=== PATIENT | male | born 1965 | race Caucasian/White ===

== ENCOUNTER 2022-04-08 01:15 | Emergency (ER) | payer MEDICARE ==
[~2022-04-08] VITALS: Ht 185.4 cm; Wt 96.3 kg
[2022-04-08] MEDS ORDERED: CLONIDINE0.1 MG PO (01:37)
[2022-04-08] MEDS ORDERED: LEVOTHYROXIN100 MCG PO (01:38)
[2022-04-08] MEDS ORDERED: PANTOPRAZOLE SO40 M3 (01:38)
[2022-04-08] MEDS ORDERED: ABILIFY MYCITE15 M2 (01:39)
[2022-04-08] MEDS ORDERED: MIRTAZAPINE15 MG PO (01:39)
[2022-04-08] MEDS ORDERED: LORAZEPAM0.5 MG PO (01:39)
[2022-04-08] MEDS ORDERED: ROSUVASTATIN CA10 MG (01:40)
[2022-04-08 02:00] LABS: HEMOGLOBIN 14.2 g/dl (14.0-18.0); IMMATURE GRANULOCYTES 0.5 % (0.0-5.0); MEAN CELL VOLUME 88.5 fL CALC (80.0-100.0); MEAN CORPUSCULAR HGB 29.2 pG CALC (26.0-32.0); NEUT# 4.16 thou/uL (1.82-7.42); RED BLOOD COUNT 4.86 mill/uL (4.70-6.10); RED CELL DISTRI WIDTH 13.4 % (11.5-15.5)
[2022-04-08 02:01] LABS: ALBUMIN 4.4 g/dL (3.2-5.0); ALKALINE PHOSPHATASE 80 u/l (38-126); AMYLASE 61 u/l (30-110); ANION GAP 11 (6-22 (CALC)); BILIRUBIN, TOTAL 0.4 mg/dL (0.0-1.4); BUN 12 mg/dL (9-20); BUN/CREATININE RATIO 11 (12-20 (CALC)); CARBON DIOXIDE 28 mmol/l (22-30); CHLORIDE 108 mmol/l (95-108); CREATININE 1.1 mg/dL (0.7-1.3); ETHYL ALCOHOL 0 mg/dl (0-30); GFR FOR AFR.AMER. > 60 ML/MIN (>=60 (CALC)); GFR OTHER RACES > 60 ML/MIN (>=60 (CALC)); LIPASE 139 u/l (23-300); POTASSIUM 4.1 mmol/l (3.5-5.1); SGOT/AST 29 u/l (17-59); SODIUM 142 mmol/l (137-146); TOTAL PROTEIN 7.7 g/dL (6.3-8.2)
[2022-04-08 02:02] LABS: PROTHROMBIN TIME 9.8 SECONDS (9.0-12.5)
[2022-04-08 02:12] LABS: MYOGLOBIN 67 ng/mL (0 - 121)
[2022-04-08] MEDS ORDERED: EQ OMEPRAZOLE20 MG PO (04:30)
[2022-04-08] MEDS ORDERED: CLARITIN10 M2 PO (04:30)
[2022-04-08] MEDS ORDERED: AMOXICILLIN500 MG PO (04:30)
[2022-04-08 04:38] VITALS: BP 136/74
== END 2022-04-08 04:40 | disposition home or self-care (01) ==
LOC: ED 01:15
PROVIDERS: Emergency Medicine
DX: K92.0 Hematemesis (principal); J02.9 Acute pharyngitis, unspecified; F95.2 Tourette's disorder; I10 Essential (primary) hypertension; E03.9 Hypothyroidism, unspecified; K21.9 Gastro-esophageal reflux disease without esophagitis; Z20.822 Contact with and (suspected) exposure to COVID-19
CPT/HCPCS: Q9967; S0164

== ENCOUNTER 2023-08-18 20:11 | Emergency (ER) | payer MEDICARE, MEDICAID ==
[2023-08-18] VITALS (10 sets, daily range): BP systolic 112–142; BP diastolic 74–93
[~2023-08-18] VITALS: Ht 185.4 cm; Wt 85.0 kg
[~2023-08-18 20:11] MED LIST: ABILIFY MYCITE15 M2; AMOXICILLIN500 MG PO; CLARITIN10 M2 PO; CLONIDINE0.1 MG PO; EQ OMEPRAZOLE20 MG PO; LEVOTHYROXIN100 MCG PO; LORAZEPAM0.5 MG PO; MIRTAZAPINE15 MG PO; PANTOPRAZOLE SO40 M3; ROSUVASTATIN CA10 MG
[2023-08-18] MEDS ORDERED: CRESTOR10 MG PO (20:51)
[2023-08-18] MEDS ORDERED: TRILEPTAL300 M1 PO (20:53)
[2023-08-18] MEDS ORDERED: SEROQUEL100 MG PO (20:57)
[2023-08-18] MEDS ORDERED: HUMIRA40 MG/0.8 SC (20:59)
[2023-08-18] MEDS ORDERED: PROTONIX40 M2 PO (21:00)
[2023-08-18 21:38] LABS: BASO% 0.4 % (0-3); EOS% 5.2 % (0-8); HEMATOCRIT 46.9 % (39.0-50.0); HEMOGLOBIN 15.2 g/dl (14.0-18.0); IMMATURE GRANULOCYTES 0.3 % (0.0-5.0); LYMPH% 26.9 % (15-41); MEAN CELL VOLUME 90.5 fL CALC (80.0-100.0); MEAN CORPUSCULAR HGB 29.3 pG CALC (26.0-32.0); MEAN CORPUSCULAR HGB CONC 32.4 g/dL CAL (32.0-36.0); MONO% 6.4 % (2-13); NEUT# 4.82 thou/uL (1.82-7.42); NEUT% 60.8 % (42-76); RED BLOOD COUNT 5.18 mill/uL (4.70-6.10); RED CELL DISTRI WIDTH 14.1 % (11.5-15.5)
[2023-08-18 21:48] LABS: ALBUMIN 4.6 g/dL (3.2-5.0); ALKALINE PHOSPHATASE 88 u/l (38-126); ANION GAP 12 (6-22 (CALC)); BILIRUBIN, TOTAL 0.5 mg/dL (0.2-1.3); BUN 10 mg/dL (9-20); BUN/CREATININE RATIO 11 (12-20 (CALC)); CARBON DIOXIDE 25 mmol/l (22-30); CHLORIDE 107 mmol/l (95-108); GFR FOR AFR.AMER. > 60 ML/MIN (>=60 (CALC)); GFR OTHER RACES > 60 ML/MIN (>=60 (CALC)); POTASSIUM 4.5 mmol/l (3.5-5.1); SGOT/AST 34 u/l (17-59); SODIUM 140 mmol/l (137-146); TOTAL PROTEIN 7.4 g/dL (6.3-8.2)
[2023-08-18 23:19] LABS: URINE BILIRUBIN - DIPSTICK Negative (NEGATIVE); URINE BLOOD DIPSTICK Negative (NEGATIVE); URINE GLUCOSE - DIPSTICK Negative (NEGATIVE); URINE KETONE Negative (NEGATIVE); URINE LEUK ESTERASE Negative (NEGATIVE); URINE NITRITE - DIPSTICK Negative (Negative); URINE PH 6.5 (4.5-8.0); URINE PROTEIN - DIPSTICK Negative (NEG-TRACE); URINE UROBILINOGEN - DIPSTICK 0.2 E.U./dL (0.2)
[2023-08-18 23:20] LABS: URINE COLOR Yellow
[2023-08-19 00:05] VITALS: BP 112/79
== END 2023-08-19 00:20 | disposition home or self-care (01) ==
LOC: ED 20:11
PROVIDERS: Family Medicine
DX: F43.22 Adjustment disorder with anxiety (principal); I10 Essential (primary) hypertension; E03.9 Hypothyroidism, unspecified; K21.9 Gastro-esophageal reflux disease without esophagitis; F95.2 Tourette's disorder

== ENCOUNTER 2024-02-07 02:15 | Emergency (ER) | payer MEDICARE, MEDICAID ==
[~2024-02-07] VITALS: Ht 185.4 cm; Wt 101.0 kg
[~2024-02-07 02:15] MED LIST changes: +CRESTOR10 MG PO; +HUMIRA40 MG/0.8 SC; +PROTONIX40 M2 PO; +SEROQUEL100 MG PO; +TRILEPTAL300 M1 PO
[2024-02-07 02:25] VITALS: BP 122/90
[2024-02-07 02:30] VITALS: BP 112/71
[2024-02-07] MEDS ORDERED: IBUPROFEN 600 MG/TAB PO ONE (02:35)
[2024-02-07] MEDS ORDERED: ACETAMINOPHEN 500 MG TAB PO ONE (02:35)
[2024-02-07 02:54] LABS: BASO% 0.7 % (0-3); EOS% 5.4 % (0-8); HEMATOCRIT 44.1 % (39.0-50.0); HEMOGLOBIN 14.2 g/dl (14.0-18.0); IMMATURE GRANULOCYTES 0.2 % (0.0-5.0); LYMPH% 25.6 % (15-41); MEAN CELL VOLUME 90.7 fL CALC (80.0-100.0); MEAN CORPUSCULAR HGB 29.2 pG CALC (26.0-32.0); MEAN CORPUSCULAR HGB CONC 32.2 g/dL CAL (32.0-36.0); MONO% 12.4 % (2-13); NEUT# 2.46 thou/uL (1.82-7.42); NEUT% 55.7 % (42-76); RED BLOOD COUNT 4.86 mill/uL (4.70-6.10); RED CELL DISTRI WIDTH 13.8 % (11.5-15.5)
[2024-02-07 03:33] VITALS: BP 112/71
== END 2024-02-07 03:43 | disposition home or self-care (01) ==
LOC: ED 02:15
PROVIDERS: Family Medicine
DX: U07.1 COVID-19 (principal); R50.9 Fever, unspecified; J02.9 Acute pharyngitis, unspecified; R05.9 Cough, unspecified; R51.9 Headache, unspecified; M79.10 Myalgia, unspecified site; I10 Essential (primary) hypertension; E03.9 Hypothyroidism, unspecified; K21.9 Gastro-esophageal reflux disease without esophagitis

== ENCOUNTER 2024-02-28 10:47 | Emergency (ER) | payer MEDICARE ==
[~2024-02-28] VITALS: Ht 185.4 cm; Wt 100.0 kg
[2024-02-28 11:12] VITALS: BP 114/80
[2024-02-28 11:30] VITALS: BP 97/66
[2024-02-28 12:00] VITALS: BP 102/67
[2024-02-28] MEDS ORDERED: FLOXIN OTIC0.3 % AD (12:14)
[2024-02-28 12:30] VITALS: BP 117/71
== END 2024-02-28 12:45 | disposition home or self-care (01) ==
LOC: ED 10:47
DX: H60.91 Unspecified otitis externa, right ear (principal); I10 Essential (primary) hypertension; E03.9 Hypothyroidism, unspecified; K21.9 Gastro-esophageal reflux disease without esophagitis; F95.2 Tourette's disorder

== ENCOUNTER 2024-07-28 23:00 | Emergency (ER) | payer MEDICARE, MEDICAID ==
[~2024-07-28] VITALS: Ht 185.4 cm; Wt 104.8 kg
[~2024-07-28 23:00] MED LIST changes: +FLEXERIL5 M1 PO; +FLOXIN OTIC0.3 % AD; +NAPROXEN500 MG PO
[2024-07-28] MEDS ORDERED: DiphenhydrAMINE HCL 25 MG CPLT PO ONE (23:15)
[2024-07-28] MEDS ORDERED: OXYMETAZOLINE HCL 15 ML/BTL ONE (23:20)
[2024-07-28 23:23] VITALS: BP 146/84
[2024-07-28 23:30] VITALS: BP 137/94
[2024-07-28 23:45] VITALS: BP 123/85
[2024-07-29] VITALS: BP 121/86
== END 2024-07-28 23:59 | disposition home or self-care (01) ==
LOC: ED 23:00
DX: J06.9 Acute upper respiratory infection, unspecified (principal); I10 Essential (primary) hypertension; E03.9 Hypothyroidism, unspecified; K21.9 Gastro-esophageal reflux disease without esophagitis; F95.2 Tourette's disorder; Z20.822 Contact with and (suspected) exposure to COVID-19

== ENCOUNTER 2024-09-21 06:10 | Emergency (ER) | payer MEDICARE, MEDICAID | END 2024-09-21 06:30 | disposition left against medical advice (07) | LOC: ED 06:10 → LWOBS 06:30 → ED 06:30 | DX: Z53.21 Procedure and treatment not carried out due to patient leaving prior to being seen by health care provider (principal) ==

== ENCOUNTER 2024-10-08 10:13 | Emergency (ER) | payer MEDICARE, MEDICAID ==
[~2024-10-08] VITALS: Ht 185.4 cm; Wt 100.5 kg
[2024-10-08] VITALS (10 sets, daily range): BP systolic 114–134; BP diastolic 79–100
[2024-10-08] MEDS ORDERED: KETOROLAC TROMETHAMINE 30 MG/ML SDV IM ONE (11:50)
[2024-10-08] MEDS ORDERED: IBUPROFEN600 MG PO (12:57)
[2024-10-08] MEDS ORDERED: NAPROXEN500 MG PO (15:24)
[2024-10-08] MEDS ORDERED: NAPROXEN EC500 MG PO (15:31)
== END 2024-10-08 13:04 | disposition home or self-care (01) ==
LOC: ED 10:13
DX: J04.0 Acute laryngitis (principal); I10 Essential (primary) hypertension; E03.9 Hypothyroidism, unspecified; K21.9 Gastro-esophageal reflux disease without esophagitis; F95.2 Tourette's disorder; Z20.822 Contact with and (suspected) exposure to COVID-19
CPT/HCPCS: J1100

== ENCOUNTER 2024-10-20 03:59 | Emergency (ER) | payer MEDICARE, MEDICAID ==
[~2024-10-20] VITALS: Ht 185.4 cm; Wt 105.0 kg
[~2024-10-20 03:59] MED LIST changes: +IBUPROFEN600 MG PO; +NAPROXEN EC500 MG PO
[2024-10-20] MEDS ORDERED: guaiFENesin-CODEINE 200-20 MG/10 ML UDC PO ONE (04:25)
[2024-10-20 04:57] LABS: BASO% 0.4 % (0-3); EOS% 4.3 % (0-8); HEMATOCRIT 43.7 % (39.0-50.0); HEMOGLOBIN 13.6 g/dl (14.0-18.0); IMMATURE GRANULOCYTES 0.4 % (0.0-5.0); LYMPH% 28.8 % (15-41); MEAN CELL VOLUME 91.8 fL CALC (80.0-100.0); MEAN CORPUSCULAR HGB 28.6 pG CALC (26.0-32.0); MEAN CORPUSCULAR HGB CONC 31.1 g/dL CAL (32.0-36.0); MONO% 7.7 % (2-13); NEUT# 3.95 thou/uL (1.82-7.42); NEUT% 58.4 % (42-76); RED BLOOD COUNT 4.76 mill/uL (4.70-6.10); RED CELL DISTRI WIDTH 13.5 % (11.5-15.5)
[2024-10-20 05:13] LABS: ALBUMIN 3.8 g/dL (3.2-5.0); BILIRUBIN, TOTAL 0.5 mg/dL (0.2-1.3); CREATININE 0.9 mg/dL (0.7-1.3); POTASSIUM 3.8 mmol/l (3.5-5.1); TOTAL PROTEIN 6.8 g/dL (6.3-8.2)
[2024-10-20 06:40] VITALS: BP 139/92
== END 2024-10-20 06:51 | disposition home or self-care (01) ==
LOC: ED 03:59
PROVIDERS: Family Medicine
DX: J20.9 Acute bronchitis, unspecified (principal); I10 Essential (primary) hypertension; E03.9 Hypothyroidism, unspecified; K21.9 Gastro-esophageal reflux disease without esophagitis; F95.2 Tourette's disorder; Z20.822 Contact with and (suspected) exposure to COVID-19